=== PATIENT | male | born 1990 | race African-American/Black ===

== ENCOUNTER 2017-05-17 20:35 | Emergency (ER) | payer OTHER | END 2017-05-17 22:08 | disposition home or self-care (01) | LOC: ER 20:35 | DX: M23.8X1 Other internal derangements of right knee (principal); Z98.890 Other specified postprocedural states ==

== ENCOUNTER 2018-11-16 11:31 | Emergency (ER) | payer OTHER ==
[~2018-11-16] VITALS: Ht 175.3 cm; Wt 88.5 kg
[~2018-11-16 11:31] MED LIST: HYDROCODONE-AP1 EAC6 PO
[2018-11-16] MEDS ORDERED: IBUPROFEN 400400 M2 PO (13:01)
[2018-11-16] MEDS ORDERED: FLEXERIL PO (13:01)
[2018-11-16 13:10] VITALS: BP 128/74
== END 2018-11-16 13:07 | disposition home or self-care (01) ==
LOC: ER 11:31
DX: M54.2 Cervicalgia (principal); V89.2XXA Person injured in unspecified motor-vehicle accident, traffic, initial encounter; Y92.89 Other specified places as the place of occurrence of the external cause; Y93.89 Activity, other specified; Y99.8 Other external cause status